=== PATIENT | female | born 1985 | race Two or more races ===

== ENCOUNTER 2023-05-13 16:19 | Emergency (ER) | payer OTHER ==
[~2023-05-13] VITALS: Ht 180.3 cm; Wt 74.8 kg
[2023-05-13] MEDS ORDERED: LEVOTHYROXINE25 MCG PO (17:32)
[2023-05-13 19:02] LABS: HEMATOCRIT 40.5 % (36.0-45.00); HEMOGLOBIN 13.9 g/dL (12.0-15.00); MEAN CELL VOLUME 92.2 fL (80.00-100.00); MEAN CORPUSCULAR HEMOGLOBIN 31.6 pg (27.00-32.0); MEAN CORPUSCULAR HGB CONC 34.3 g/dl (32.0-36.0); PLATELET COUNT 321 K/uL (150-450); RED BLOOD COUNT 4.39 M/uL (4.00-6.00); RED CELL DISTRIBUTION WIDTH 12.8 % (11.5-14.5)
[2023-05-13 19:06] LABS: URINE APPEARANCE Cloudy; URINE BILIRRUBIN Negative (NEGATIVE); URINE BLOOD Large; URINE COLOR Yellow; URINE GLUCOSE Negative (NEGATIVE); URINE LEUKOCYTE Large; URINE NITRATE Negative; URINE PROTEIN Negative (NEGATIVE)
[2023-05-13 19:08] LABS: URINE BACTERIA 1698.4 uL (0.0-1933); URINE RBC 73.4 uL (0.0-20.8); URINE WBC 220.9 uL (0.0-23.2)
[2023-05-13 19:23] LABS: ALBUMIN 3.7 gm/dL (3.4-5.0); BILIRUBIN TOTAL 0.81 mg/dL (0.3-1.2); CALCIUM 9.4 mg/dL (8.5-10.1); CREATININE SERUM 0.74 mg/dL (0.55-1.02); GFR 88.8; GLOBULINA 4.7 G/DL (2.4-3.5); POTASSIUM 3.66 mEq/L (3.5-5.1); TOTAL PROTEIN 8.4 gm/dL (6.4-8.2)
[2023-05-13] MEDS ORDERED: METRONIDAZOLE500 MG PO (20:11)
[2023-05-13] MEDS ORDERED: DICLOFENAC SODI75 MG PO (20:12)
== END 2023-05-13 21:01 | disposition home or self-care (01) ==
LOC: ER 16:19
PROVIDERS: General Practice
DX: N39.0 Urinary tract infection, site not specified (principal); N89.8 Other specified noninflammatory disorders of vagina; R10.2 Pelvic and perineal pain